=== PATIENT | male | born 1995 | race Caucasian/White ===

== ENCOUNTER 2020-06-04 23:08 | Emergency (ER) | payer BC, OTHER ==
[~2020-06-04] VITALS: Ht 175.3 cm; Wt 73.5 kg
[2020-06-04 23:09] VITALS: BP 118/76
--- NOTE | 2020-06-04 23:58 | REPVR ---
PROCEDURE INFORMATION: Exam: XR Right Ankle Exam date and time: 06/04/2020 11:46 PM Age: 25 years old Clinical indication: Pain; Ankle; Right; Additional info: Injury TECHNIQUE: Imaging protocol: XR Right ankle. Views: 3 or more views. COMPARISON: No relevant prior studies available. FINDINGS: Bones/joints: Acute mildly displaced, oblique fracture of the distal fibular metaphysis extending superiorly from the joint line. Medial malleolus and posterior malleolus is intact. No dislocation. Soft tissues: Soft tissue swelling over the lateral malleolus. IMPRESSION: 1. Isolated lateral malleolar fracture. 2. AO type B1 malleolar fracture. Electronically signed by: Bessy Loya On 06/04/2020 23:58:51 PM
--- NOTE | 2020-06-05 | REPVR ---
PROCEDURE INFORMATION: Exam: XR Right Tibia and Fibula Exam date and time: 06/04/2020 11:46 PM Age: 25 years old Clinical indication: Pain; Lower leg; Right; Additional info: Injury TECHNIQUE: Imaging protocol: XR Right tibia and fibula. Views: 2 views. COMPARISON: No relevant prior studies available. FINDINGS: Bones/joints: Acute mildly displaced oblique fracture of the distal fibular metaphysis. No dislocation. Tibia appears intact. Soft tissues: Normal. IMPRESSION: Acute mildly displaced oblique fracture of the distal fibular metaphysis. See XR ankle report. Electronically signed by: Bessy Loya On 06/05/2020 00:01:05 AM
[2020-06-05] MEDS ORDERED: NORCO 5/325MG TABLET (BULK FOR ED) PO ONE (00:45)
== END 2020-06-05 00:59 | disposition home or self-care (01) ==
LOC: M ED 23:08
DX: S82.61XA Displaced fracture of lateral malleolus of right fibula, initial encounter for closed fracture (principal); V86.52XA Driver of snowmobile injured in nontraffic accident, initial encounter; Y92.89 Other specified places as the place of occurrence of the external cause